=== PATIENT | male | born 1975 | race Caucasian/White ===

== ENCOUNTER 2017-06-30 14:05 | Emergency (ER) | END 2017-06-30 19:25 | disposition home or self-care (01) ==

== ENCOUNTER 2017-10-28 08:25 | Emergency (ER) | END 2017-10-28 17:07 | disposition short-term general hospital (02) ==

== ENCOUNTER 2018-02-18 18:08 | Emergency (ER) | END 2018-02-18 22:42 | disposition home or self-care (01) ==

== ENCOUNTER 2018-02-21 12:32 | Emergency (ER) | END 2018-02-21 14:18 | disposition home or self-care (01) ==

== ENCOUNTER 2018-03-01 08:44 | Emergency (ER) | END 2018-03-01 09:17 | disposition home or self-care (01) ==